=== PATIENT | male | born 1955 | race Caucasian/White ===

== ENCOUNTER 2022-10-08 12:45 | Outpatient (RCR) | payer MEDICARE, SELFPAY ==
--- NOTE | ~2022-10-08 | XR_ITS ---
EXAMINATION: XR TOES, RIGHT CLINICAL INFORMATION: Nonhealing wound. Attention to the great toe. COMPARISON: None TECHNIQUE: 3 views of the right toes were obtained. FINDINGS: These nonweight-bearing views show hindfoot valgus and pes planus. There is loss of subtalar joint space. Plantar calcaneal enthesophyte is present. There is osseous hypertrophy of the navicular tuberosity -- the site of posterior tibial tendon attachment. Small osteophytes of the talonavicular joint and first tarsometatarsal joint. Also, small osteophytes are present at mildly degenerated interphalangeal joints in the forefoot. At the great toe metatarsophalangeal joint, there is severe joint space narrowing, subarticular sclerosis, subarticular cystic change and osteophyte formation. No erosive changes or periostitis to suggest presence of osteomyelitis. No acute fracture. Nonspecific soft tissue swelling of the foot and ankle. XR/XR toe RT min 2V IMPRESSION: * Severe osteoarthritis of the 1st metatarsophalangeal joint and mild osteoarthritis at several other joints, as noted above. * No radiographic evidence of osteomyelitis. * Pes planus and hindfoot valgus deformity. Consider possibility of posterior tibial tendon dysfunction. * Nonspecific soft tissue swelling of the foot and ankle.
[2022-10-13 14:28] LABS: MANUAL DIFF FLAG NO
[2022-10-13 14:54] LABS: Basophils Absolute Auto 0.1 X10*3/uL (0.0-0.2); Basophils Percent Auto 0.8 % (0-2); Eosinophils Absolute Auto 0.1 X10*3/uL (0.0-0.4); Eosinophils Percent Auto 0.5 % (0-4); Hemoglobin 13.7 g/dl (14.0-18.0); Imm Gran Abs Auto 0.06 X10*3/uL (0.00-0.03); Imm Gran Pct Auto 0.7 % (0.0-0.4); Lymphocytes Absolute Auto 1.2 X10*3/uL (1.2-4.9); Lymphocytes Percent Auto 12.8 % (20-40); Mean Corpuscular HGB Conc 32.6 g/dl (31.0-36.0); Mean Corpuscular Hemoglobin 28.7 pg (27.0-33.0); Mean Corpuscular Volume 88.1 fL (80.0-98.0); Mean Platelet Volume 10.2 fL (9.4-12.4); Monocytes Absolute Auto 0.5 X10*3/uL (0.1-1.2); Monocytes Percent Auto 5.1 % (2-11); Neutrophils Absolute Auto 7.3 x10*3/uL (2.0-8.3); Neutrophils Percent Auto 80.1 % (45-73); Platelet Count 235 X10*3/uL (160-400); Red Blood Count 4.77 X10*6/uL (4.60-5.80); Red Cell Distribution Width 13.2 % (11.0-16.0); White Blood Count 9.2 X10*3/uL (4.8-10.8)
[2022-10-13 15:34] LABS: Erythrocyte Sedimentation Rate 28 MM/HR (0-15)
[2022-10-13 15:48] LABS: Estimated Average Glucose 108 mg/dL; Hemoglobin A1c % 5.4 %
[2022-10-13 16:22] LABS: Anion Gap 14 (12-20); Blood Urea Nitrogen 17 mg/dL (9-16); C Reactive Protein 0.21 mg/dL (< or = 0.50); Calcium 9.9 mg/dL (8.4-10.2); Carbon Dioxide 32 mmol/L (22-29); Chloride 99 mmol/L (96-108); Estimated Glomerular Filt Rate > 60; Glucose Random 108 mg/dL (60-115); Sodium 140 mmol/L (135-145)
== END 2023-06-10 16:00 | disposition home or self-care (01) ==
LOC: HO.WCC 12:45
PROVIDERS: Surgery; PCP Family Medicine; Visit Provider Surgery
DX: L97.512 Non-pressure chronic ulcer of other part of right foot with fat layer exposed (principal); G90.09 Other idiopathic peripheral autonomic neuropathy; Z79.891 Long term (current) use of opiate analgesic; Z79.82 Long term (current) use of aspirin; Z79.899 Other long term (current) drug therapy
CPT/HCPCS: 11042; 15275; 36415; 73660; 80048; 83036; 84134; 85025; 85652; 86140; 99213

== ENCOUNTER 2025-06-07 14:35 | Outpatient (REF) | payer MEDICARE, SELFPAY ==
--- OUTSIDE RECORDS SUMMARY | 2025-01-26 07:00 | XMS_ITS ---
[facility] Address [address] [place] [address] Care Team Providers Care Performance Management Consultant Name Role Phone Jarred Burgess Unavailable [phone] REASON FOR VISIT r/s for sooner apt Encounters Encounter Location Date Provider Diagnosis [address] [phone] 01/26/2025 Jarred Burgess Plan Of Treatment Next Appt Details Provider Name:Jarred Burgess , 07/20/2025 01:15:00 PM, [address] [place] [address], [phone], Progress Notes * Michael THORNTONDOB:[birth year] (69 yo M)Acc No.[id number]:01/26/2025 Progress Note Patient: Leyla WEBSTERMichael GUNN Provider: Adriane Burgess DPM :1955 A ge:69 Y S ex:Male Date:01/26/2025 Address:[address] [place], [place] [id number] Subjective: * Chief Complaints: * 1 . R/s for sooner apt. * Medical History: Objective: * Vitals: Assessment: Plan: * Treatment: * Images: * The named appointment provid er may or may not be the originator of this progress note, and it is not deemed complete until electronically signed by the appointment provider. Sign off status: Pending * Provider: Adriane Burgess DPM Date: 0 01/26/2025 Generated for Henry kruse/Rani/Jn on: 0 06/08/2025 03:54 PM EDT
--- OUTSIDE RECORDS SUMMARY | 2025-06-08 15:55 | XMS_ITS | Patient Health Record ---
Author Organization [facility] Address [address] [place] [phone] Care Team Providers Care Landscape Architect Name Role Phone Magno Elkins Unavailable [phone] Reason For Referral No Information Plan Of Treatment No Information
--- OUTSIDE RECORDS SUMMARY | 2025-06-08 15:55 | XMS_ITS | Clinical Summary ---
Author Organization [facility] Address [address] [place] [address] Phone Care Team Providers Care Resident Care Manager Name Role Phone Magno Tobias DO Primary Care Provider [phone] Allergies No known active allergies Medications amoxicillin-cla vulanate (AUGMENTIN) 875-125 mg per tablet Take 1 tablet by mouth 2 (two) times a day for 10 days. 20 each 05/16/2025 Active Problems No known active problems Encounters Date Type Department Care Team Description 05/16/2025 2:00 PM EDT Consult Orthopedic Surgery [facility] [address] [facility] [address] [place] [address] Oni Randolph, DPM Hammer toe of left foot (Primary Dx); Open wound of plantar aspect of right foot; Ulcer of toe of left foot, with fat layer exposed ([facility] V24, [facility] V28); Ulcer of toe of right foot, limited to breakdown of skin ([facility] V24, [facility] V28); Dermatophytosis of nail; Ingrowing nail; Pain in toe of right foot; Pain in toe of left foot; Diabetic mononeuropathy simplex ([facility] V24, [facility] V28); Type II diabetes mellitus with peripheral circulatory disorder ([facility] V24, [facility] V28); Cellulitis of left foot from Last 3 Months Surgical History Surgery Date Site/Laterality Comments AORTIC VALVE REPLACEMENT Medical History Medical History Date Comments Anxiety Fibromyalgia Chronic fatigue Lyme disease Lower extremity edema Open wound of great toe Hammer toe Hard of hearing Sepsis ([facility] V24, [facility] V28) Social History Tobacco Use Types Packs/Day Years Used Date Smoking Tobacco: Never Smokeless Tobacco: Current Tobacco Cessation:Ready to Q uit: Not Asked; Counseling Given: Not Answered Alcohol Use Standard Drinks/Week Comments Never 0 (1 standard drink = 0.6 oz pur e alcohol) Sex and Gender Information Value Date Recorded Sex Assigned at Male 01/13/2025 1:07 PM EDT Legal Sex Male 12:07 PM EDT Gender Identity Male 01/13/2025 1:07 PM EDT Sexual Orientation Straight 01/13/2025 1: 07 PM EDT Obstetrics History Last Filed Vital Signs Vital Sign Reading Time Taken Comments Blood Pressure 117/70 01/13/2025 12:27 PM EDT Pulse 58 01/13/2025 12:27 PM EDT Temperature 36.9 C (98.4 F) 01/13/2025 12:27 PM EDT Respiratory Rate 20 01/13/2025 12:27 PM EDT Oxygen Saturation 95% 01/13/2025 12:27 PM EDT Inhaled Oxygen Concentration - - Weight 145 kg (320 lb) 01/13/2025 12:27 PM EDT Height 190.5 cm (6' 3 ) 01/13/2025 12:27 PM EDT Body Mass Index 40 01/13/2025 12:27 PM EDT Plan of Treatment Upcoming Encounters Date Type Department Care Team (Late st Contact Info) Description 06/14/2025 3:00 PM EDT Office Visit Orthopedic Surgery [facility] [address] [phone] Oni Randolph, DPM [address] [address] Health Maintenance Due Date Last Done Comments Diabetes: Annual Foot Exam 1963 Diabetes: Annual Retina Eye Exam 1963 Hepatitis A Vaccines (1 of 2 - Risk 2-dose series) 1972 Zoster Vaccines (1 of 2) 2003 RSV Immunization Adult Patients (1 - Risk 60-74 years 1-dose series) 2013 Pneumococcal Vaccine: 50+ Years (3 of 3 - PCV20 or PCV21) 02/24/2024 02/23/2019, 02/14/2018 COVID-19 Vaccine ( season) 2024 09/13/2022, 03/08/2021, 02/13/2021 Depression Screening 11/01/2024 Cholesterol Screening (Lipid Panel) 01/13/2025 Colorectal Cancer Screening: Colonoscopy 01/13/2025 Falls Risk Assessment 01/13/2025 Hepatitis C Screening 01/13/2025 Medicare Annual Wellness Visit 01/13/2025 Social Influencers of Health Screening 01/13/2025 DTaP,Tdap,and Td Vaccines (2 - Td or Tdap) 02/14/2025 02/14/2015 Diabetes: Annual Urine Albumin-Creatinine Ratio (uACR) 05/17/2025 Diabetes: Blood Sugar Control Test (HGBA1C) 05/17/2025 Influenza Vaccine (#1) 2025 , 08/27/2021, 08/02/2020, Additional history exists Diabetes: Annual GFR (Glomerular Filtration Rate) 01/13/2026 01/13/2025 Hypertension/CHF/CAD Annual BMP Blood Test 01/13/2026 01/13/2025 HIB Vaccines Aged Out No longer eligi ble based on patient's age to complete this topic HPV Vaccines Aged Out No longer eligi ble based on patient's age to complete this topic Hepatitis B Vaccines Aged Out No long er eligible based on patient's age to complete this topic IPV Vaccines Aged Out No longer eligi ble based on patient's age to complete this topic MMR Vaccines Aged Out No longer eligi ble based on patient's age to complete this topic Meningococcal ACWY Vaccine Aged Out N o longer eligible based on patient's age to complete this topic Meningococcal B Vaccine Aged Out No l onger eligible based on patient's age to complete this topic RSV Immunization Patients Under 20 months Aged Out No longer eligible based on patient's age to complete this topic Varicella Vaccines Aged Out No longer eligible based on patient's age to complete this topic Procedures Procedure Name Priority Date/Time Associated Diagnosis Comments BASIC METABOLIC PANEL STAT 01/13/2025 1:29 PM EDT from Last 3 Months or Most Recently Relevant to Health Maintenance Results * (ABNORMAL) Basic metabolic panel (01/13/2025 1:29 PM EDT) Sodium 135 133 - 145 mmol/L LAB CHEMISTRY METHOD 01/13/2025 1:59 PM [facility] Potassium 4.4 3.5 - 5.5 mmol/L LAB CHEMISTRY METHOD 01/13/2025 1:59 PM [facility] Chloride 105 96 - 110 mmol/L LAB CHEMISTRY METHOD 01/13/2025 1:59 PM [facility] CO2 25 21 - 32 mmol/L LAB CHEMISTRY METHOD 01/13/2025 1:59 PM [facility] Anion Gap 5 3 - 11 LAB CHEMISTRY METHOD 01/13/2025 1:59 PM [facility] Glucose 123(H) 70 - 100 mg/dL LAB CHEMISTRY METHOD 01/13/2025 1:59 PM [facility] BUN 40(H) 5 - 25 mg/dL LAB CHEMISTRY METHOD 01/13/2025 1:59 PM [facility] Creatinine 1.59(H) 0.70 - 1.30 mg/dL LAB CHEMISTRY METHOD 01/13/2025 1:59 PM [facility] eGFR 46(L) >=60 mL/min/1. 73m2 LAB CHEMISTRY METHOD 01/13/2025 1:59 PM [facility] Comment:Calculation based on the Chronic Kidney Disease Epidemiology Collaboration (CKD-EPI) equation refit without adjustment for race. BUN/Creatinine Ratio 25.2 LAB CHEMISTRY METHOD 01/13/2025 1:59 PM [facility] Calcium 8.9 8.5 - 10.5 mg/dL LAB CHEMISTRY METHOD 01/13/2025 1:59 PM [facility] Blood Venous blood specimen / Unknown Venipuncture / Unknown 01/13/2025 1:29 PM EDT 01/13/2025 1:33 PM EDT us Ai [facility] LAB BLOOD ORDERABLES Final Result [facility] [address] [place] [address], from Last 3 Months or Most Recently Relevant to Health Maintenance Insurance MEDICARE [facility] Care Teams Resident Care Manager Relationship Specialty Start Date End Date Magno Tobias DO [address] [place] [address] PCP - General Family Medicine 03/21/25
== END 2025-06-07 14:36 | disposition home or self-care (01) ==
LOC: HO.LNP 14:35
PROVIDERS: Visit Provider Surgery Vascular Surgery
DX: Z13.89 Encounter for screening for other disorder (principal)
CPT/HCPCS: 87070; 87073; 87205

== ENCOUNTER → 2025-09-21 14:20 | Outpatient (BNV) | payer MEDICARE, SELFPAY | PROVIDERS: PCP Family Medicine; Visit Provider Radiology Diagnostic Radiology | DX: M19.071 Primary osteoarthritis, right ankle and foot (principal); M79.89 Other specified soft tissue disorders | CPT/HCPCS: 73660 ==